=== PATIENT | male | born 1965 | race Caucasian/White ===

== ENCOUNTER → 2021-11-06 | Outpatient (CLI) | payer OTHER ==
--- NOTE | 2021-11-06 17:17 | KCIC ---
EXAMINATION: Magnetic resonance imaging (MRI) of the cervical spine without contrast 11/06/2021 1:25 PM HISTORY: Cervical radiculopathy. Neck pain and left upper extremity numbness for several months TECHNIQUE: Multiplanar multi-weighted MRI of the cervical spine was performed without intravenous con trast using the standard cervical spine protocol. Contrast information: None administered COMPARISON: None available. FINDINGS: The alignment of the cervical spine is normal. Vertebral bodies demonstrate normal signal intensity o n all sequences. No acute fracture is identified; however, if trauma is suspected, a CT scan would b e a more sensitive examination for fractures. The craniocervical junction is normal. The visualized portions of the skull base and the posterior fossa are normal. The spinal cord demonstrates normal signal intensity on all sequences. Intervertebral disks have normal height and signal intensity. The re are no annular fissures identified. No soft tissue abnormality is identified. Normal signal void s are present in the vertebral arteries. C2-C3: The disk is normal in configuration. There is no facet arthropathy. There is no uncovertebral joint disease. There is no neuroforaminal stenosis. There is no spinal canal stenosis. C3-C4: There is a circumferential disc bulge. There is no facet arthropathy. There is no uncovertebr al joint disease. There is no neuroforaminal stenosis. There is no spinal canal stenosis. C4-C5: There is a circumferential disc bulge. There is no facet arthropathy. There is mild uncoverte bral joint disease. There is mild bilateral neuroforaminal stenosis. There is no spinal canal stenosi s. C5-C6: There is a circumferential disc bulge. There is no facet arthropathy. There is mild uncoverte bral joint disease. There is mild left neuroforaminal stenosis. There is no spinal canal stenosis. C6-C7: Circumferential disc bulge. There is no facet arthropathy. There is mild to moderate left unc overtebral joint disease. There is mild to moderate left neuroforaminal stenosis. There is no spinal canal stenosis. C7-T1: The disk is normal in configuration. There is no facet arthropathy. There is no uncovertebral joint disease. There is no neuroforaminal stenosis. There is no spinal canal stenosis. IMPRESSION: Mild degenerative changes of the cervical spine as described in detail above. Electronically signed by: Karie Marsh MD (11/06/2021 5:14 PM) [id number]
== END ==
LOC: KCIC MRI 13:16
PROVIDERS: ATTEND Physician Assistant
DX: M47.22 Other spondylosis with radiculopathy, cervical region (principal); M50.11 Cervical disc disorder with radiculopathy, high cervical region; M53.82 Other specified dorsopathies, cervical region; M48.02 Spinal stenosis, cervical region
CPT/HCPCS: 72141